=== PATIENT | male | born 1970 | race Caucasian/White ===

== ENCOUNTER 2016-08-18 01:06 | Emergency (ER) | payer OTHER ==
[~2016-08-18] VITALS: Ht 167.6 cm; Wt 82.8 kg
[~2016-08-18 01:06] MED LIST: DIOVAN HCT 11 TABLET PO
[2016-08-18 02:36] LABS: HEMATOCRIT 45.7 % (38.0-50.0); MCH 29.2 PG (29.0-34.0); MCHC 34.4 G/DL (30.0-36.0); MCV 85.1 FL (86-99); MEAN PLAT.VOLUME 9.9 uM^3 (9.0-12.4); PLATELET COUNT 336 K/uL (156-360); RBC DIS.WIDTH-CV 11.7 % (11.8-14.6); RBC DIS.WIDTH-SD 36.1 % (39-53); RED BLOOD COUNT 5.37 M/uL (4.00-5.50); WHITE BLOOD COUNT 13.8 K/uL (4.1-10.2)
[2016-08-18 02:44] LABS: CHLORIDE 105 mEq/L (99-109); SODIUM 138 mEq/L (136-147)
[2016-08-18 02:46] LABS: GLUCOSE 106 mg/dL (70-99)
[2016-08-18 02:48] LABS: ANION GAP 9 MEQ/L (2-14); TOTAL BILIRUBIN 0.6 mg/dL (0.0-1.0)
[2016-08-18 02:50] LABS: ALKALINE PHOSPHATASE 77 IU/L (3-129); GFR ESTIMATE (CALCULATED) > 59 mL/min/
[2016-08-18 02:51] LABS: UREA NITROGEN (BUN) 12 mg/dL (9-23)
[2016-08-18 02:54] LABS: LIPASE 18 U/L (1.0-51.0)
[2016-08-18] MEDS ORDERED: CIPRO500 MG PO (03:31)
[2016-08-18] MEDS ORDERED: FLAGYL500 MG PO (03:31)
[2016-08-18] MEDS ORDERED: PERCOCET 5/31 TABLET PO (03:31)
[2016-08-18] MEDS ORDERED: ZOFRAN4 MG PO (03:31)
[2016-08-18 03:47] VITALS: BP 150/94
== END 2016-08-18 03:49 | disposition home or self-care (01) ==
LOC: EME 01:06
PROVIDERS: Emergency Medicine
DX: K57.92 Diverticulitis of intestine, part unspecified, without perforation or abscess without bleeding (principal)
CPT/HCPCS: 74177; 80053; 81003; 83605; 83690; 85027; 93005; 99281; 99283; J2270; J2405; J7030